=== PATIENT | male | born 1945 | race Caucasian/White ===

== ENCOUNTER 2017-03-29 16:32 | Emergency (ER) | payer MEDICARE, OTHER ==
[2017-03-29 16:43] VITALS: TEMP 99.3; O2SAT 96
[2017-03-29] MEDS ORDERED: Sodium Chloride 0.9% 1,000 ML IV ONE (16:57)
--- NOTE | 2017-03-29 17:03 | C.PDOC ---
History Of Present Illness 72 yr old male presents to the ER stating last night he felt bloated and distended, went to the bathroom and had a formed stool followed by several episodes of watery diarrhea, non bloody. Patient states, later on he developed a fever and chills. Patient reports this morning he woke up and still felt feverish with chills and diarrhea but no abdominal pain. Patient denies chest pain, SOB, nausea, vomiting, sick contact, travel, medications, weakness or numbness. Patient reports has a history of exploratory laparotomy with normal findings. Pa Time Seen by Provider: 03/29/17 16:45 Chief Complaint (Nursing): Abdominal Pain History Per: Patient History/Exam Limitations: no limitations Onset/Duration Of Symptoms: Days (1) Current Symptoms Are (Timing): Still Present Past Medical History Reviewed: Historical Data, Nursing Documentation, Vital Signs Vital Signs: Last Vital Signs Temp 99.3 F 03/29/17 16:42 Pulse 84 03/29/17 16:42 Resp 20 03/29/17 16:42 BP 132/80 03/29/17 16:42 Pulse Ox 96 03/29/17 17:06 - Medical History PMH: Hypercholesterolemia Family History: States: No Known Family Hx - Social History Hx Alcohol Use: No Hx Substance Use: No - Immunization History Hx Tetanus Toxoid Vaccination: No Hx Influenza Vaccination: Yes Hx Pneumococcal Vaccination: No Review Of Systems Except As Marked, All Systems Reviewed And Found Negative. Constitutional: Positive for: Fever (Subejctive), Chills Cardiovascular: Negative for: Chest Pain Respiratory: Negative for: Shortness of Breath Gastrointestinal: Positive for: Abdominal Pain (None now), Diarrhea (Non bloody , watery diarrhea). Negative for: Nausea, Vomiting Neurological: Negative for: Weakness, Numbness Physical Exam - Physical Exam Appears: Non-toxic, No Acute Distress Skin: Warm (consistent with a low grade fever), Dry, No Rash Head: Atraumatic, Normacephalic Oral Mucosa: Moist Chest: Symmetrical, No Tenderness Cardiovascular: Rhythm Regular, No Murmur Respiratory: Normal Breath Sounds, No Rales, No Rhonchi, No Wheezing Gastrointestinal/Abdominal: Bowel Sounds (Hyperactive), Soft, No Tenderness, No Guarding, No Rebound Extremity: Normal ROM, No Swelling Neurological/Psych: Oriented x3, Normal Speech, Normal Motor ED Course And Treatment - Laboratory Results Result Diagrams: 03/29/17 17:30 03/29/17 17:30 Lab Interpretation: Normal O2 Sat by Pulse Oximetry: 96 (RA ) Pulse Ox Interpretation: Normal Reevaluation Time: 18:44 Reassessment Condition: Improved (Patient comfortable without any symptoms at this time.) Medical Decision Making Medical Decision Making: PLAN: * CBC * CMP * Urinalysis * Zofran IVP * Sodium Chloride IV Disposition Counseled Patient/Family Regarding: Studies Performed, Diagnosis, Need For Followup - Disposition Referrals: Antonio Watt MD [Staff Provider] - Disposition: HOME/ ROUTINE Disposition Time: 18:45 Condition: IMPROVED Additional Instructions: Take a probiotic daily to help your stool normalize again. Instructions: Acute Diarrhea (ED) Forms: [employer] (Lithuanian) - Clinical Impression Clinical Impression: Diarrhea - Scribe Statement The provider has reviewed the documentation as recorded by the Scribe Gayatri Parks Provider Attestation: All medical record entries made by the Scribe were at my direction and personally dictated by me. I have reviewed the chart and agree that the record accurately reflects my personal performance of the history, physical exam, medical decision making, and the department course for this patient. I have also personally directed, reviewed, and agree with the discharge instructions and disposition.
[2017-03-29] MEDS ORDERED: Sodium Chloride 0.9% 1,000 ML ONE (17:12)
[2017-03-29 17:40] LABS: BASO % 0.3 % (0.0-2.0); EOS % 0.3 % (0.0-4.0); HEMATOCRIT 39.5 % (35.0-51.0); LYMPH # 1.4 K/uL (1.0-4.3); LYMPH % 13.8 % (20.0-40.0); MEAN CORPUSCULAR HEMOGLOBIN 29.2 pg (27.0-31.0); MEAN CORPUSCULAR HGB CONC 33.9 g/dL (33.0-37.0); MEAN PLATELET VOLUME 7.7 fL (7.2-11.7); MONO # 0.9 K/uL (0.0-0.8); MONO % 8.7 % (0.0-10.0); RED CELL DISTRIBUTION WIDTH 13.6 % (11.5-14.5)
[2017-03-29 17:43] LABS: CHLORIDE 103 mmol/L (98-107); SODIUM 139 mmol/L (132-148)
[2017-03-29 17:45] LABS: GFR AFRICAN-AMERICAN > 60
[2017-03-29 17:46] LABS: ALB/GLOB RATIO 1.1 (1.0-2.1); ALKALINE PHOSPHATASE 40 U/L (38-126); ALT/SGPT 32 U/L (21-72); AST/SGOT 25 U/L (17-59); BILIRUBIN,TOTAL 0.8 mg/dL (0.2-1.3); BLOOD UREA NITROGEN 12 mg/dL (9-20); CALCIUM 8.8 mg/dl (8.6-10.4); CARBON DIOXIDE 22 mmol/L (22-30); GLUCOSE,RANDOM 96 mg/dL (75-110); TOTAL PROTEIN 6.9 g/dL (6.3-8.3)
[2017-03-29 18:27] LABS: RBC URINE 1 /hpf (0-3); URINE BACTERIA RARE (<OCC); URINE BILIRUBIN NEGATIVE (NEGATIVE); URINE BLOOD 2+ (NEGATIVE); URINE COLOR Straw (YELLOW); URINE GLUCOSE (UA) NORMAL (Normal); URINE KETONE NEGATIVE (NEGATIVE); URINE LEUKOCYTE ESTERASE NEG Leu/uL (Negative); URINE PROTEIN NEGATIVE (NEGATIVE); URINE UROBILINOGEN NORMAL mg/dL (0.2-1.0)
[2017-03-29 18:56] VITALS: BP 113/62; PULSE 77; RESP 18
== END 2017-03-29 19:08 | disposition home or self-care (01) ==
LOC: C.ER 16:32
DX: R19.7 Diarrhea, unspecified (principal)
CPT/HCPCS: 80053; 81001; 83690; 85025; 96361; 96374; 99285; J2405; J7040